=== PATIENT | male | born 1950 | race Caucasian/White ===

== ENCOUNTER → 2019-06-07 13:23 | Outpatient (CLI) | payer SELFPAY ==
--- NOTE | 2019-06-07 13:33 | CT_ITS ---
STUDY: CARDIAC CALCIUM SCORING - CT CHEST REASON FOR EXAM: Male, 68 years old. Atherosclerosis RADIATION DOSAGE (If Supplied By Facility): CTDIvol = ( 12.19 ) mGy, DLP = ( 243.79 ) mGycm TECHNIQUE: Axial non-enhanced images were acquired through the heart for the sole purpose of measuring coronary artery calcium. Individualized dose optimization techniques were used for this CT. COMPARISON: None. FINDINGS: Please see the patient's medical record for a personalized calcium score. There are mild emphysematous changes noted in the lungs. The visualized lungs are otherwise clear. The visualized soft tissues are within normal limits. CT/Limited Chest CT w/CCTA IMPRESSION: Please see the patient's medical record for a personalized calcium score. Mild emphysema. Please go to: [email or web address] , for a description of the calculator. Electronically Signed: Shon oDlan, at 15:41 EST Tel , Service support ,
[2019-06-07 13:37] VITALS: BP 145/69; PULSE 50; RESP 14; O2SAT 96; BMI 33.7
--- NOTE | 2019-06-07 18:21 | CA.SCORE ---
Calcium Scoring Date of Study:: 06/07/19 Coronary Calcium Scoring: High-resolution Computed Tomographic imaging of the chest was performed on [ ], with particular attention paid to the coronary arteries. Images from the examination were analyzed for the presence and extent of coronary artery calcification , using coronary calcium quantification software. The patient tolerated the procedure well and there were no complications. The results of the coronary calcification analysis are provided below. - Findings Left Main (LM): 61.4 Left Anterior Descending (LAD): 47.3 Left Circumflex (LCX): 47.7 Right Coronary Artery (RCA): 74.3 Total Agatston Score: 230.7 Percentile Ranking: Percentile ranking: Based upon pre-published data between 50 and 75% of patients of the same gender/similar age had the same/lower scores. Calcium Scoring Interpretation: 0 No identifiable atherosclerotic plaque. Very low cardiovascular disease risk. <5% chance of presence coronary artery disease A Negative Examination 1-10 Minimal Plaque burden. Significant coronary artery disease very unlikely. 11-100 Mild plaque burden. Likely mild or minimal coronary atherosclerosis. 101-400 Moderate plaque burden Moderate non-obstructive coronary artery disease highly likely. Over 400 Extensive plaque burden. High likelihood of at least one significant coronary stenosis (>50% diameter) Calcium Score: 101 - 400 Moderate non-obstructive coronary artery disease highly like Conclusion: Continue cardiovascular risk factor evaluation and care as deemed appropriate.
== END ==
PROVIDERS: Family Provider Internal Medicine; PCP Internal Medicine; Referring Provider Internal Medicine; Visit Provider Internal Medicine
DX: I25.10 Atherosclerotic heart disease of native coronary artery without angina pectoris (principal)
CPT/HCPCS: 75571; 76380